=== PATIENT | female | born 1955 | race Caucasian/White ===

== ENCOUNTER 2018-10-24 01:51 | Observation (INO) ==
[2018-10-24] MEDS ORDERED: Pantoprazole Inj 40 MG Vial IV.PUSH ONE (03:01)
--- NOTE | 2018-10-24 03:09 | ED ---
HPI General Chief Complaint: Chest Pain Stated Complaint: Chest pain/SOB Time Seen by Provider: 10/24/18 03:00 Source: patient Mode of arrival: ambulatory Limitations: no limitations History of Present Illness HPI narrative: 62-year-old female presents to the emergency department by private transportation for evaluation of retrosternal chest pain radiating to the left jaw and face. Patient states symptoms awakened from sleep with a pounding rapid heartbeat. Heartbeat has been pounding has dissipated but chest tightness persist for approximately 10 minutes. Patient did take an aspirin prior to arrival to the emergency department but does not know the dosage. No prior history of known coronary vessel disease or arrhythmia. Patient does have anxiety and peptic ulcer disease but does not report any hypertension CAD dyslipidemia diabetes tobaccoism PE DVT clotting disorder connective tissue disease or family history of premature onset heart disease. Recent evaluation for GI/abdominal pain workup identified by CT a small pericardial effusion patient has had an echocardiogram confirmed a small pericardial effusion according to the patient. MD complaint: Reports chest pain STEMI Alert: No Onset (ago): hour(s) (1.5) Duration: intermittent Onset: during rest and awoke with symptoms Pain location: Reports substernal Severity: mild Severity scale (1-10): 3 Quality: Reports tightness and heaviness Pain radiation: Reports neck (left) and jaw/teeth (left) Relieving factors: nothing Exacerbating factors: nothing Context: Denies recent illness, recent surgery (recent upper endoscopy and colonoscopy identified to have peptic ulcer disease), recent immobilization, recent travel, trauma/injury, new medications and history of DVT/PE Associated symptoms: Reports dyspnea and palpitations; Denies nausea, vomiting, diaphoresis, sense of impending doom, syncope, fever, cough and leg swelling Treatments prior to arrival chest pain: Reports aspirin; Denies nitroglycerin, oxygen and defibrillation Related Data On Oral Contraceptives: No Home Medications Medication Instructions Recorded Confirmed aspirin [Aspir-81] 81 mg PO PRN 10/24/18 10/24/18 lorazepam 0.5 mg PO DAILY PRN 10/24/18 10/24/18 pantoprazole 40 mg PO DAILY 10/24/18 10/24/18 trazodone 200 mg PO HS 10/24/18 10/24/18 Allergies Allergy/AdvReac Type Severity Reaction Status Date / Time No Known Allergies Allergy Verified 10/24/18 02:01 Review of Systems ROS: all other systems reviewed are negative PMFSH History History Provided By: Patient (small pericardial effusion) Medical History Medical History Peptic ulcer (Acute) Social History Social History Substance History: No History of Abuse Smoking Status: Never smoker How Often Do You Have a Drink Containing Alcohol: Monthly or less Recent Travel in [facility] within the Last 8 Weeks: No Recent Out of Country Travel within the Last 8 Weeks: No Immunization History Tetanus Immunization: Unsure Exam Narrative Exam Narrative: GENERAL: Well-developed well-nourished female no acute distress no respiratory distress; GCS 15; NIH SS: 0 SKIN: Focused skin assessment warm/dry. HEAD: Atraumatic. Normocephalic. EYES: Pupils equal and round. No scleral icterus. No injection or drainage. ENT: No nasal bleeding or discharge. Mucous membranes pink and moist. NECK: Trachea midline. No JVD. CARDIOVASCULAR: Regular rate and rhythm. No murmur appreciated. RESPIRATORY: No accessory muscle use. Clear to auscultation. Breath sounds equal bilaterally. GASTROINTESTINAL: Abdomen soft, non-tender, nondistended. Hepatic and splenic margins not palpable. MUSCULOSKELETAL: No obvious deformities. No clubbing. No cyanosis. No edema. NEUROLOGICAL: Awake and alert. No obvious cranial nerve deficits. Motor grossly within normal limits. Normal speech. PSYCHIATRIC: Appropriate mood and affect; insight and judgment normal. Course Initial Documented Vital Signs Temperature 98.3 F 10/24/18 02:01 Pulse Rate 69 10/24/18 02:01 Respiratory Rate 16 10/24/18 02:01 Blood Pressure 197/90 H 10/24/18 02:01 Pulse Oximetry 99 10/24/18 02:01 Last Documented Vital Signs Temperature 98.6 F 10/24/18 11:22 Pulse Rate 59 L 10/24/18 11:22 Respiratory Rate 16 10/24/18 11:22 Blood Pressure 131/69 10/24/18 11:22 Pulse Oximetry 99 10/24/18 10:50 Medical Decision Making MDM Narrative Medical decision making narrative: 62-year-old female with complaint of chest pain and pounding heartbeat that awakened her from sleep just prior to arrival to the emergency department with chest pain radiating into the left neck and face area. Patient describes discomfort as a tightness heaviness and rates the discomfort as a 3/10 in intensity. Patient did take aspirin prior to arrival to the emergency department patient was placed on environmental monitoring technician continuous pulse oximetry IV access obtained specimens collections of resulting nitroglycerin ordered as well as Protonix. EKG is sinus rhythm no acute ST elevation injury pattern or ectopy rate is 60 artifact is present at baseline. EKG shows no acute injury pattern change cardiac enzymes are found to be in normal range Patient symptomatically improved after sublingual nitroglycerin although now chest pain is 0/10 in intensity she not notes epigastric pain 3/10 in intensity and some shortness of breath D-dimer is elevated and CT pulmonary angiogram ordered Patient will be admitted to chest pain center per protocol. Medical Screen Exam Complete: Yes Emergency Medical Condition: Yes Medical Records Medical records reviewed: Yes I reviewed the patient's medical records. Lab Data Result diagrams: 10/24/18 03:10 10/24/18 03:10 Lab Results 10/24/18 10/24/18 10/24/18 Range/Units 03:10 03:10 03:10 WBC 4.9 (4.0-11.0) th/mm3 RBC 3.94 L (4.00-5.30) mil/mm3 Hgb 13.3 (11.6-15.3) gm/dL Hct 39.2 (35.0-46.0) % MCV 99.6 (80.0-100.0) fL MCH 33.9 (27.0-34.0) pg MCHC 34.0 (32.0-36.0) % RDW 13.6 (11.6-17.2) % Plt Count 183 (150-450) th/mm3 MPV 9.3 (7.0-11.0) fL Neut % (Auto) 51.4 (16.0-70.0) % Lymph % (Auto) 30.3 (9.0-44.0) % Brooks % (Auto) 11.9 H (0.0-8.0) % Eos % (Auto) 5.9 H (0.0-4.0) % Baso % (Auto) 0.5 (0.0-2.0) % Neut # (Auto) 2.5 (1.8-7.7) th/mm3 Lymph # (Auto) 1.5 (1.0-4.8) th/mm3 [place] # (Auto) 0.6 (0.0-0.9) th/mm3 Eos # (Auto) 0.3 (0.0-0.4) th/mm3 Baso # (Auto) 0.0 (0.0-0.2) th/mm3 WBC Differential . Differential Comment Auto diff final PT 10.0 (9.8-11.6) sec INR 1.0 Ratio APTT 25.0 (23.4-31.7) sec D-Dimer Quant (PE/DVT) (0.00-0.50) mg/L FEU Sodium 145 (136-145) meq/L Potassium 4.0 (3.5-5.1) meq/L Chloride 110 H (98-107) meq/L Carbon Dioxide 29.1 (21.0-32.0) meq/L Anion Gap 6 (5-15) meq/L BUN 14 (7-18) mg/dL Creatinine 0.83 (0.50-1.00) mg/dL Estimated GFR 69 L (>89) mL/min Random Glucose 101 (74-106) mg/dL Calcium 8.4 L (8.5-10.1) mg/dL Magnesium 1.8 (1.5-2.5) mg/dL Total Bilirubin 0.4 (0.2-1.0) mg/dL AST 19 (15-37) U/L ALT 18 (10-53) U/L Alkaline Phosphatase 71 (45-117) U/L Total Creatine Kinase (26-192) U/L Troponin I Less than 0.02 L (0.02-0.05) ng/mL Total Protein 7.0 (6.4-8.2) g/dL Albumin 3.6 (3.4-5.0) g/dL 10/24/18 10/24/18 10/24/18 Range/Units 03:10 06:28 09:29 WBC (4.0-11.0) th/mm3 RBC (4.00-5.30) mil/mm3 Hgb (11.6-15.3) gm/dL Hct (35.0-46.0) % MCV (80.0-100.0) fL MCH (27.0-34.0) pg MCHC (32.0-36.0) % RDW (11.6-17.2) % Plt Count (150-450) th/mm3 MPV (7.0-11.0) fL Neut % (Auto) (16.0-70.0) % Lymph % (Auto) (9.0-44.0) % Brooks % (Auto) (0.0-8.0) % Eos % (Auto) (0.0-4.0) % Baso % (Auto) (0.0-2.0) % Neut # (Auto) (1.8-7.7) th/mm3 Lymph # (Auto) (1.0-4.8) th/mm3 [place] # (Auto) (0.0-0.9) th/mm3 Eos # (Auto) (0.0-0.4) th/mm3 Baso # (Auto) (0.0-0.2) th/mm3 WBC Differential Differential Comment PT (9.8-11.6) sec INR Ratio APTT (23.4-31.7) sec D-Dimer Quant (PE/DVT) 1.56 H (0.00-0.50) mg/L FEU Sodium (136-145) meq/L Potassium (3.5-5.1) meq/L Chloride (98-107) meq/L Carbon Dioxide (21.0-32.0) meq/L Anion Gap (5-15) meq/L BUN (7-18) mg/dL Creatinine (0.50-1.00) mg/dL Estimated GFR (>89) mL/min Random Glucose (74-106) mg/dL Calcium (8.5-10.1) mg/dL Magnesium (1.5-2.5) mg/dL Total Bilirubin (0.2-1.0) mg/dL AST (15-37) U/L ALT (10-53) U/L Alkaline Phosphatase (45-117) U/L Total Creatine Kinase 101 101 (26-192) U/L Troponin I Less than 0.02 L Less than 0.02 L (0.02-0.05) ng/mL Total Protein (6.4-8.2) g/dL Albumin (3.4-5.0) g/dL Imaging Data Radiologist's impression: Chest X-Ray 10/24/18 03:00 CONCLUSION: The lungs are clear. Chest CTA 10/24/18 05:55 CONCLUSION: 1. Very small pericardial effusion. 2. Otherwise negative. No acute infiltrate or pulmonary embolus. Myocardial Perfusion Scan Nuc Med 10/24/18 10:09 CONCLUSION: 1. No significant reversibility to suggest ischemia. 2. Normal wall motion with ejection fraction 68%. ECG Data EKG Prior to Arrival: No Attestation: I personally reviewed and interpreted this ECG as follows: (EKG normal sinus rhythm rate [address] elevation injury pattern or ectopy noted artifact is present at baseline) Discharge Plan Discharge Disposition Patient Disposition: ED Admit(ED Internal Use Only) Discharge Condition Condition: Stable Discharge Order Discharge Orders: Discharge Order (Routine); Ordered 10/24/18 Ordered By: Josh Islas ED Use Only Admit Order (Routine); Ordered 10/24/18 Ordered By: Ansley Gaviria Discharge Details Diagnosis: Chest pain, Effusion, pericardium Physicians Team ED Provider: Ansley Gaviria Primary Care Provider: Elizabeth Shcwartz Attending Provider: Lewis Marin Status ED Status: Left Department Discharge Information Discharge Date/Time: 10/24/18 10:52
[2018-10-24 03:23] LABS: Baso % (Auto) 0.5 % (0.0-2.0); Eos # (Auto) 0.3 th/mm3 (0.0-0.4); Eos % (Auto) 5.9 % (0.0-4.0); Hematocrit 39.2 % (35.0-46.0); Hemoglobin 13.3 gm/dL (11.6-15.3); Lymph # (Auto) 1.5 th/mm3 (1.0-4.8); Lymph % (Auto) 30.3 % (9.0-44.0); Mean Corpuscular Hemoglobin 33.9 pg (27.0-34.0); Mean Corpuscular Volume 99.6 fL (80.0-100.0); Mean Platelet Volume 9.3 fL (7.0-11.0); Mono # (Auto) 0.6 th/mm3 (0.0-0.9); Mono % (Auto) 11.9 % (0.0-8.0); Neut # (Auto) 2.5 th/mm3 (1.8-7.7); Neut % (Auto) 51.4 % (16.0-70.0); Platelet Count 183 th/mm3 (150-450); Red Blood Count 3.94 mil/mm3 (4.00-5.30); Red Cell Distribution Width 13.6 % (11.6-17.2); White Blood Count 4.9 th/mm3 (4.0-11.0)
[2018-10-24] MEDS: Sod Chloride 0.9% Inj 1,000 ML IV.CONT SCH ×2 (03:34→14:07)
[2018-10-24 03:38] LABS: Alanine Aminotransferase 18 U/L (10-53); Albumin 3.6 g/dL (3.4-5.0); Anion Gap 6 meq/L (5-15); Aspartate Aminotransferase 19 U/L (15-37); Blood Urea Nitrogen 14 mg/dL (7-18); Calcium 8.4 mg/dL (8.5-10.1); Carbon Dioxide 29.1 meq/L (21.0-32.0); Chloride 110 meq/L (98-107); Glomerular Filtration Rate 69 mL/min (>89); Glucose,Random 101 mg/dL (74-106); Magnesium 1.8 mg/dL (1.5-2.5); Sodium 145 meq/L (136-145)
[2018-10-24 03:43] LABS: Alkaline Phosphatase 71 U/L (45-117)
[2018-10-24] MEDS ORDERED: Morphine Sulfate Inj 2 MG/ML Vial IV.PUSH ONE (03:55)
[2018-10-24] MEDS ORDERED: Sucralfate Liq 1 GM/10 ML UDC PO SCH (04:00)
--- NOTE | 2018-10-24 04:05 | XR ---
EXAM DATE: 10/24/2018 3:59 AM EST AGE/SEX: 62 years / Female INDICATIONS: Shortness of breath. CLINICAL DATA: This is the patient's initial encounter. Patient reports that signs and symptoms have been present for 1 day and indicates a pain score of 0/10. MEDICAL/SURGICAL HISTORY: None. None. COMPARISON: No prior exams available for comparison. FINDINGS: A single AP view of the chest demonstrates the lungs to be symmetrically aerated without evidence of mass, infiltrate or effusion. The cardiomediastinal contours are unremarkable. Osseous structures a re intact. CONCLUSION: The lungs are clear. Electronically signed by: Cesar Stevens MD Board Certified Radiologist 10/24/2018 4:04 AM EST
--- NOTE | 2018-10-24 06:38 | CT ---
EXAM DATE: 10/24/2018 6:33 AM EST AGE/SEX: 62 years / Female INDICATIONS: Shortness of breath. Chest pain. CLINICAL DATA: This is the patient's initial encounter. Patient reports that signs and symptoms have been present for 1 day and indicates a pain score of 2/10. MEDICAL/SURGICAL HISTORY: None. None. RADIATION DOSE: 7.83 CTDI (mGy) COMPARISON: [facility], CHEST 1V SINGLE AP, 10/24/2018. . TECHNIQUE: Volumetric scanning was performed using a multi-row detector CT scanner during bolus infu chet of 75 ml Omnipaque 350 (iohexol) nonionic water-soluble contrast as a single exam dose. The dorothy a was post processed with a variety of visualization algorithms including full volume maximum intensi ty projection and sliding thin slab reformation. Using automated exposure control and adjustment of the mA and/or kV according to patient size, radiation dose was kept as low as reasonably achievable t o obtain optimal diagnostic quality images. DICOM format image data is available electronically for review and comparison. FINDINGS: Pulmonary Arteries: No filling defects are seen in the pulmonary arteries out to the subsegmental ve ssels. The left and right pulmonary arteries are normal in diameter. Lung: No infiltrates seen. Effusion: None. Mediastinum: No evidence of mediastinal or hilar adenopathy. There is a small pericardial effusion. Other: The axilla is unremarkable. CONCLUSION: 1. Very small pericardial effusion. 2. Otherwise negative. No acute infiltrate or pulmonary embolus. Electronically signed by: Cesar Stevens MD Board Certified Radiologist 10/24/2018 6:36 AM EST
[2018-10-24 07:17] LABS: Creatine Kinase 101 U/L (26-192)
[2018-10-24] MEDS ORDERED: Regadenoson Inj 0.4 MG/5 ML Syringe IV.PUSH ONE (10:09)
--- NOTE | 2018-10-24 10:16 | P.HPCA ---
History of Present Illness Primary Care Physician: Elizabeth Schwartz MD Chief Complaint: Chest pain History of Present Illness: This is a 62-year-old female that presents to the ED without history of hypertension, hyperlipidemia, diabetes, CAD with complaint of sensation heart beating rapidly and chest pressure. Patient states this is been going on for the past week. States only occurs at nighttime and it wakes her up. She states she wakes up with a sensation heart beating rapidly gets beating out of her chest and will feel flushed and nauseated. Last evening he took an Ativan and some aspirin and tried to relax but still felt very nervous and decided to come into the emergency department. The symptoms have been lasting about 10 minutes when they occur. This morning when it woke her up she did check her blood pressure was 118/89 but did not check her heart rate. Denies prior cardiac workup. Denies recent illnesses. Denies fevers or chills. Currently is asymptomatic. States she recently had a GI workup. States she had a CT of the pelvis with her PCP which revealed fluid around her heart and was referred to gastroenterology who did an endoscopy and colonoscopy and found some ulcers but otherwise was okay. Was told to stop taking aspirin. Past medical history: Denies hypertension, hyperlipidemia, diabetes, or CAD. Has history of anxiety. Family history: She states that her sister had a stent in her 60s and had CHF. Her mother had CHF. Social history: She is a non-smoker. - Diagnosis (1) Chest pain (2) Palpitations Review of Systems General: Patient denies fevers, chills, and recent travel. HEENT: Patient denies headache, sore throat, difficulty swallowing. Cardiovascular: Has the chest discomfort as mentioned above. Had sensation heart beating rapidly but not irregularly did not check pulse while having symptoms. No syncope. Jackson a little flushed. Respiratory: Denies shortness of breath or inspirational chest discomfort. Denies coughing wheezing or hemoptysis. GI: Patient denies nausea, vomiting, diarrhea, abdominal pain, bloody stools. Musculoskeletal: Patient denies joint pain or edema. Denies calf pain or edema. Neurovascular: Patient denies numbness, tingling, weakness in extremities. Denies headache. Endocrine: Denies polyuria and polydipsia. Hematologic: Denies easy bruising. Skin: Denies rash or itching. PMFSH - History History Provided By: Patient (small pericardial effusion) - Medical History Medical History: Medical History (Last Reviewed 10/24/18 @ 03:05 by Ansley Gaviria MD) Peptic ulcer - Tobacco History Smoking Status: Never smoker - Alcohol History How Often Do You Have a Drink Containing Alcohol: Monthly or less - Substance Use History Substance History: No History of Abuse - Travel History Recent Travel in the [place] Within the Last 8 Weeks: No Recent Travel Out of the Country Within the Last 8 Weeks: No - Immunization History Tetanus Immunization: Unsure Medications and Allergies Active Medications: Active Medications Sodium Chloride (Ns Inj) 1,000 mls @ 100 mls/hr IV.CONT .Q10H [facility] Last Admin: 10/24/18 03:34 Dose: 100 mls/hr Nitroglycerin (Nitrostat Sl) 0.4 mg SL Q5M PRN PRN Reason: CHEST PAIN Pantoprazole Sodium (Protonix) 40 mg PO DAILY [facility] Last Admin: 10/24/18 09:46 Dose: 40 mg Sodium Chloride (Ns Flush) 2 ml IV.FLUSH UNSCH PRN PRN Reason: FLUSH AFTER USING IV ACCESS Sodium Chloride (Ns Flush) 2 ml IV.FLUSH BID [facility] Last Admin: 10/24/18 09:46 Dose: Not Given Sodium Chloride (Ns Flush) 2 ml IV.FLUSH PRN PRN PRN Reason: FLUSH AFTER USING IV ACCESS Sucralfate (Carafate Liq) 1 gm PO NOW [facility] Last Admin: 10/24/18 04:27 Dose: 1 gm Allergies Allergy/AdvReac Type Severity Reaction Status Date / Time No Known Allergies Allergy Verified 10/24/18 02:01 Home Medications Medication Instructions Recorded Confirmed Type aspirin [Aspir-81] 81 mg PO PRN 10/24/18 10/24/18 History lorazepam 0.5 mg PO DAILY PRN 10/24/18 10/24/18 History pantoprazole 40 mg PO DAILY 10/24/18 10/24/18 History trazodone 200 mg PO HS 10/24/18 10/24/18 History Exam Vital signs: Vital Signs 10/24/18 02:01 10/24/18 03:21 10/24/18 03:23 Temperature 98.3 F Pulse Rate 69 67 67 Respiratory Rate 16 20 18 Blood Pressure 197/90 H 158/73 H 196/86 H Pulse Oximetry 99 100 100 10/24/18 03:39 10/24/18 04:52 10/24/18 04:53 Temperature Pulse Rate 63 70 Respiratory Rate 20 18 Blood Pressure 126/73 128/76 Pulse Oximetry 98 99 97 10/24/18 04:59 10/24/18 05:06 10/24/18 06:04 Temperature Pulse Rate 60 64 Respiratory Rate 18 16 Blood Pressure 144/63 H 130/72 Pulse Oximetry 99 96 98 10/24/18 06:15 10/24/18 06:45 10/24/18 09:38 Temperature Pulse Rate 64 64 61 Respiratory Rate 16 18 23 Blood Pressure 130/72 143/96 H 143/70 H Pulse Oximetry 98 97 100 Intake & Output 10/23/18 10/24/18 10/24/18 18:59 06:59 18:59 Weight 61.235 kg Narrative: GENERAL: This is a well-nourished, well-developed patient, in no apparent distress. Patient speaks in clear complete sentences. Patient is pleasant. HEENT: Head is atraumatic and normocephalic. Neck is supple without lymphadenopathy and trachea is midline. No JVD or carotid bruits. CARDIOVASCULAR: Regular rate and rhythm without murmurs, gallops, or rubs. RESPIRATORY: Clear to auscultation. Breath sounds equal bilaterally. No wheezes , rales, or rhonchi. Chest wall is nontender. No use of accessory muscles. GASTROINTESTINAL: Abdomen is nontender, nondistended. Abdomen soft. No obvious pulsatile mass or bruit. No CVA tenderness. Strong femoral pulses bilaterally. Normal bowel sounds in all quadrants. MUSCULOSKELETAL: Patient is moving upper and lower extremities freely. No calf tenderness or edema, no Homans sign. Strong pulses in upper and lower extremities. NEUROLOGICAL: Patient is alert and oriented. Cranial nerves 2-12 are grossly intact. No focal deficits and speech is clear. SKIN: No rash and turgor is normal. Results 10/24/18 03:10 10/24/18 03:10 Cardiac Enzymes 10/24/18 10/24/18 Range/Units 03:10 06:28 AST 19 (15-37) U/L Troponin I Less than 0.02 L Less than 0.02 L (0.02-0.05) ng/mL Coagulation 10/24/18 Range/Units 03:10 PT 10.0 (9.8-11.6) sec APTT 25.0 (23.4-31.7) sec CBC 10/24/18 Range/Units 03:10 WBC 4.9 (4.0-11.0) th/mm3 RBC 3.94 L (4.00-5.30) mil/mm3 Hgb 13.3 (11.6-15.3) gm/dL Hct 39.2 (35.0-46.0) % Plt Count 183 (150-450) th/mm3 Neut # (Auto) 2.5 (1.8-7.7) th/mm3 Lymph # (Auto) 1.5 (1.0-4.8) th/mm3 [place] # (Auto) 0.6 (0.0-0.9) th/mm3 Eos # (Auto) 0.3 (0.0-0.4) th/mm3 Baso # (Auto) 0.0 (0.0-0.2) th/mm3 Comprehensive Metabolic Panel 10/24/18 Range/Units 03:10 Sodium 145 (136-145) meq/L Potassium 4.0 (3.5-5.1) meq/L Chloride 110 H (98-107) meq/L Carbon Dioxide 29.1 (21.0-32.0) meq/L BUN 14 (7-18) mg/dL Creatinine 0.83 (0.50-1.00) mg/dL Calcium 8.4 L (8.5-10.1) mg/dL AST 19 (15-37) U/L ALT 18 (10-53) U/L Alkaline Phosphatase 71 (45-117) U/L Total Protein 7.0 (6.4-8.2) g/dL Albumin 3.6 (3.4-5.0) g/dL Intake and Output 10/23/18 10/24/18 10/24/18 22:59 06:59 14:59 Other: Weight 61.235 kg - Imaging and Cardiology Imaging: Impressions Chest X-Ray 10/24/18 03:00 CONCLUSION: The lungs are clear. Chest CTA 10/24/18 05:55 CONCLUSION: 1. Very small pericardial effusion. 2. Otherwise negative. No acute infiltrate or pulmonary embolus. EKG interpretations - EKG EKG shows: sinus rhythm (EKGs have been sinus rhythm without significant ST segment depressions or elevations.) Caprini VTE Risk Assessment Caprini VTE Risk Assessment: Moderate/High Risk (score >= 2) Caprini Risk Assessment Model: Point Value = 1 Point Value = 2 Point Value = 3 Point Value = 5 Age 41-60 Minor surgery BMI > 25 kg/m2 Swollen legs Varicose veins or History of unexplained or recurrent spontaneous Oral contraceptives or hormone replacement Sepsis (< 1 month) Serious lung disease, including pneumonia (< 1 month) Abnormal pulmonary function Acute myocardial infarction Congestive heart failure (< 1 month) History of inflammatory bowel disease Medical patient at bed rest Age 61-74 Arthroscopic surgery Major open surgery (> 45 min) Laparoscopic surgery (> 45 min) Malignancy Confined to bed (> 72 hours) Immobilizing plaster cast Central venous access Age >= 75 History of VTE Family history of VTE Factor V Leiden Prothrombin [id number] Lupus anticoagulant Anticardiolipin antibodies Elevated serum homocysteine Heparin-induced thrombocytopenia Other congenital or acquired thrombophilia Stroke (< 1 month) Elective arthroplasty Hip, pelvis, or leg fracture Acute spinal cord injury (< 1 month) Prophylaxis Regimen: Total Risk Factor Score Risk Level Prophylaxis Regimen 0-1 Low Early ambulation 2 Moderate Order ONE of the following: *Sequential Compression Device (SCD) *Heparin 5000 units SQ BID 3-4 Higher Order ONE of the following medications: *Heparin 5000 units SQ TID *Enoxaparin/Lovenox 40 mg SQ daily (WT < 150 kg, CrCl > 30 mL/min) *Enoxaparin/Lovenox 30 mg SQ daily (WT < 150 kg, CrCl > 10-29 mL/min) *Enoxaparin/Lovenox 30 mg SQ BID (WT < 150 kg, CrCl > 30 mL/min) AND/OR *Sequential Compression Device (SCD) 5 or more Highest Order ONE of the following medications: *Heparin 5000 units SQ TID (Preferred with Epidurals) *Enoxaparin/Lovenox 40 mg SQ daily (WT < 150 kg, CrCl > 30 mL/min) *Enoxaparin/Lovenox 30 mg SQ daily (WT < 150 kg, CrCl > 10-29 mL/min) *Enoxaparin/Lovenox 30 mg SQ BID (WT < 150 kg, CrCl > 30 mL/min) AND *Sequential Compression Device (SCD) Assessment and Plan - Assessment (1) Chest pain Code(s): R07.9 - Chest pain, unspecified Status: Acute (2) Palpitations Code(s): R00.2 - Palpitations Status: Acute - Plan * Chest pain: Patient has had serial cardiac enzymes and EKGs for ruling out purposes and will be seen by Dr. Marin of cardiology in the chest pain center. She will undergo a Lexiscan and if nonischemic will be discharged home with instructions to follow-up with PCP. She can keep her appointment with political science instructor for follow-up. May need Holter monitor or event monitor if the symptoms persist. Return to ED for interval issues. * Palpitations: Follow-up with political science instructor. Patient is stable at this time. She is agreeable to this plan. (1) Chest pain Qualifiers: Chest pain type: precordial pain Qualified Code(s): R07.2 - Precordial pain
--- NOTE | 2018-10-24 10:35 | P.PNCA ---
Subjective Interval history: Patient was seen and evaluated by the physician interventionist, presented to me and then after review of the documentation, lab, EKG and radiographic data the patient was seen and examined personally by me. history is as recorded and is not repeated here other than to reiterate that she has a long history of anxiety, a long history of sleep disorder, both of which may possibly be playing a role here. However, over the last week she has had nightly episodes of palpitations which awaken her from sleep and are associated with flushing, shortness of breath, and vasovagal symptoms. After she experiences the tachycardia she has a dull sense of pressure in her chest which gradually abates. Has established further need for diagnostic evaluation and treatment with the physician interventionist and arrangements will be made for nuclear stress testing. If negative she will be placed on a Holter monitor and discharged for further follow-up with Dr. Schwartz within the next several days. If positive further evaluation at this time will be considered. Medications and Allergies Active Medications: Active Medications Albuterol (Duoneb Neb (Prn)) 1 ampul NEB UNSCH PRN PRN Reason: SHORTNESS OF BREATH/WHEEZING Albuterol (Albuterol Neb (Prn)) 2.5 mg NEB UNSCH PRN PRN Reason: SHORTNESS OF BREATH/WHEEZING Clonidine HCl (Catapres) 0.1 mg PO Q6H PRN PRN Reason: SBP >165 OR DBP > 110 Sodium Chloride (Ns Inj) 1,000 mls @ 100 mls/hr IV.CONT .Q10H [facility] Last Admin: 10/24/18 03:34 Dose: 100 mls/hr Nitroglycerin (Nitrostat Sl) 0.4 mg SL Q5M PRN PRN Reason: CHEST PAIN Pantoprazole Sodium (Protonix) 40 mg PO DAILY [facility] Last Admin: 10/24/18 09:46 Dose: 40 mg Sodium Chloride (Ns Flush) 2 ml IV.FLUSH UNSCH PRN PRN Reason: FLUSH AFTER USING IV ACCESS Sodium Chloride (Ns Flush) 2 ml IV.FLUSH BID [facility] Last Admin: 10/24/18 09:46 Dose: Not Given Sodium Chloride (Ns Flush) 2 ml IV.FLUSH PRN PRN PRN Reason: FLUSH AFTER USING IV ACCESS Sucralfate (Carafate Liq) 1 gm PO NOW [facility] Last Admin: 10/24/18 04:27 Dose: 1 gm Allergies Allergy/AdvReac Type Severity Reaction Status Date / Time No Known Allergies Allergy Verified 10/24/18 02:01 Home Medications Medication Instructions Recorded Confirmed Type aspirin [Aspir-81] 81 mg PO PRN 10/24/18 10/24/18 History lorazepam 0.5 mg PO DAILY PRN 10/24/18 10/24/18 History pantoprazole 40 mg PO DAILY 10/24/18 10/24/18 History trazodone 200 mg PO HS 10/24/18 10/24/18 History Physical Exam Vital signs: Vital Signs 10/24/18 02:01 10/24/18 03:21 10/24/18 03:23 Temperature 98.3 F Pulse Rate 69 67 67 Respiratory Rate 16 20 18 Blood Pressure 197/90 H 158/73 H 196/86 H Pulse Oximetry 99 100 100 10/24/18 03:39 10/24/18 04:52 10/24/18 04:53 Temperature Pulse Rate 63 70 Respiratory Rate 20 18 Blood Pressure 126/73 128/76 Pulse Oximetry 98 99 97 10/24/18 04:59 10/24/18 05:06 10/24/18 06:04 Temperature Pulse Rate 60 64 Respiratory Rate 18 16 Blood Pressure 144/63 H 130/72 Pulse Oximetry 99 96 98 10/24/18 06:15 10/24/18 06:45 10/24/18 09:38 Temperature Pulse Rate 64 64 61 Respiratory Rate 16 18 23 Blood Pressure 130/72 143/96 H 143/70 H Pulse Oximetry 98 97 100 Intake & Output 10/23/18 10/24/18 10/24/18 18:59 06:59 18:59 Weight 61.235 kg Narrative: The history as recorded is accurate and complete. Neck is supple no JVD masses nodes or bruits and no thyroid is palpated Chest is clear to auscultation with no rales wheezes or rhonchi Cardiovascular PMI is not displaced the rhythm is regular and there are no gallops or rubs but there is a soft 1/6 systolic murmur. Abdomen soft nontender no guarding or rebound no hepatosplenomegaly or masses There is no lid lag, no tremor, no hair loss or change in texture, or other signs to suggest hyperthyroidism Results 10/24/18 03:10 10/24/18 03:10 Cardiac Enzymes 10/24/18 10/24/18 Range/Units 03:10 06:28 AST 19 (15-37) U/L Troponin I Less than 0.02 L Less than 0.02 L (0.02-0.05) ng/mL Coagulation 10/24/18 Range/Units 03:10 PT 10.0 (9.8-11.6) sec APTT 25.0 (23.4-31.7) sec CBC 10/24/18 Range/Units 03:10 WBC 4.9 (4.0-11.0) th/mm3 RBC 3.94 L (4.00-5.30) mil/mm3 Hgb 13.3 (11.6-15.3) gm/dL Hct 39.2 (35.0-46.0) % Plt Count 183 (150-450) th/mm3 Neut # (Auto) 2.5 (1.8-7.7) th/mm3 Lymph # (Auto) 1.5 (1.0-4.8) th/mm3 [place] # (Auto) 0.6 (0.0-0.9) th/mm3 Eos # (Auto) 0.3 (0.0-0.4) th/mm3 Baso # (Auto) 0.0 (0.0-0.2) th/mm3 Comprehensive Metabolic Panel 10/24/18 Range/Units 03:10 Sodium 145 (136-145) meq/L Potassium 4.0 (3.5-5.1) meq/L Chloride 110 H (98-107) meq/L Carbon Dioxide 29.1 (21.0-32.0) meq/L BUN 14 (7-18) mg/dL Creatinine 0.83 (0.50-1.00) mg/dL Calcium 8.4 L (8.5-10.1) mg/dL AST 19 (15-37) U/L ALT 18 (10-53) U/L Alkaline Phosphatase 71 (45-117) U/L Total Protein 7.0 (6.4-8.2) g/dL Albumin 3.6 (3.4-5.0) g/dL Intake and Output 10/23/18 10/24/18 10/24/18 22:59 06:59 14:59 Other: Weight 61.235 kg - Imaging and Cardiology Imaging: Impressions Chest X-Ray 10/24/18 03:00 CONCLUSION: The lungs are clear. Chest CTA 10/24/18 05:55 CONCLUSION: 1. Very small pericardial effusion. 2. Otherwise negative. No acute infiltrate or pulmonary embolus. Assessment and Plan - Assessment (1) Chest pain Code(s): R07.9 - Chest pain, unspecified Status: Acute (2) Palpitations Code(s): R00.2 - Palpitations Status: Acute - Plan * Chest pain: Patient has had serial cardiac enzymes and EKGs for ruling out purposes and will be seen by Dr. Marin of cardiology in the chest pain center. She will undergo a Lexiscan and if nonischemic will be discharged home with instructions to follow-up with PCP. She can keep her appointment with weatherization administrator for follow-up. May need Holter monitor or event monitor if the symptoms persist. Return to ED for interval issues. * Palpitations: Follow-up with weatherization administrator. Patient is stable at this time. She is agreeable to this plan. (1) Chest pain Qualifiers: Chest pain type: precordial pain Qualified Code(s): R07.2 - Precordial pain
[2018-10-24 10:50] VITALS: O2SAT 99
[2018-10-24 11:22] VITALS: BP 131/69; PULSE 59; RESP 16; TEMP 98.6
[2018-10-24 11:38] LABS: Creatine Kinase 101 U/L (26-192)
--- NOTE | 2018-10-24 12:25 | ECG ---
Date Performed: 10/24/2018 Time Performed: 06:38:16 PTAGE: 62 years EKG: SINUS BRADYCARDIA LOW QRS VOLTAGE IN EXTREMITY LEADS BORDERLINE ECG Some normalization sinc e prior tracing but possible to U waves PREVIOUS TRACING : 10/24/2018 02.16 DOCTOR: Lewis Marin Interpretating Date/Time 10/24/2018 12:23:51
--- NOTE | 2018-10-24 12:25 | ECG ---
Date Performed: 10/24/2018 Time Performed: 02:16:30 PTAGE: 62 years EKG: Sinus rhythm NORMAL ECG NO PREVIOUS TRACING DOCTOR: Lewis Marin Interpretating Date/Time 10/24/2018 12:24:16
--- NOTE | 2018-10-24 14:50 | NM ---
EXAM DATE: 10/24/2018 2:27 PM EST AGE/SEX: 62 years / Female INDICATIONS:Angina. . CLINICAL DATA: This is the patient's initial encounter. Patient reports that signs and symptoms have been present for 1 day and indicates a pain score of 2/10. MEDICAL/SURGICAL HISTORY: None. None. COMPARISON: No prior exams available for comparison. DOSE: 8.7 mCi Tc 99m Myoview at rest 26.5 mCi [id number] at stress 0.4 mg Lexiscan STRESS SYMPTOMS: Short of breath. EJECTION FRACTION: 68 % TECHNIQUE: The patient underwent pharmacologic stress with infusion of prescribed dose. Continuous ECG tracing was monitored during stress. Gated SPECT imaging was performed after stress and conventi onal SPECT imaging was performed at rest. The examination was performed on a SPECT/CT scanner, both attenuation and non-corrected datasets were reviewed. FINDINGS: Distribution: The maximum perfused segment at stress is in the anterolateral wall. Perfusion Study: The pattern of perfusion at stress is within normal limits. Gated Study: There are intact wall motion and wall thickening without hypokinetic or dyskinetic segm ents. The ejection fraction is calculated at 68%. RISK CATEGORY: Low (<1% Annual Mortality Rate) CONCLUSION: 1. No significant reversibility to suggest ischemia. 2. Normal wall motion with ejection fraction 68%. Electronically signed by: Kushal Mccall MD Board Certified Radiologist 10/24/2018 2:49 PM EST
--- NOTE | 2018-10-25 10:33 | TR ---
Date Performed: 10/24/2018 Time Performed: 13:35:53 DOCTOR: Lewis Marin DRUG LIST: CLINICAL HISTORY: REASON FOR TEST: REASON FOR ENDING: OBSERVATION: CONCLUSION: Lexiscan stress test was performed under standard four minute protocol. Radionuclide was injected one minute prior to ending the test. No electrocardiographic abormalities were present to suggest ischemia. Nuclear imaging and interpretation are pending. COMMENTS:
== END 2018-10-24 17:01 | disposition home or self-care (01) ==
LOC: NEPD 01:51 → NEDA 01:51 → NEDH 08:10 → NEPGCP 10:53
PROVIDERS: ADMIT Internal Medicine Interventional Cardiology; ATTEND Internal Medicine Interventional Cardiology
CPT/HCPCS: 71010; 71045; 71275; 78452; 80053; 82550; 83735; 84484; 85025; 85379; 85610; 85730; 90761; 90774; 90784; 93005; 93017; 96361; 96374; 96375; 99285; A9502; C8952; C9113; G0378; J2405; J2785; J7030; Q9967; Q9969